=== PATIENT | male | born 1985 | race Caucasian/White ===

== ENCOUNTER 2018-09-15 14:57 | Outpatient (CLI) | payer MEDICAID, SELFPAY ==
[2018-09-15 15:56] LABS: HCT 44.8 % (40.0-50.0); HGB 15.2 g/dL (13.5-17.5); Mean Corp. HGB Concentration 33.9 g/dL (32.0-36.0); Mean Corpuscular Volume 88.4 fL (80-95); Mean Platelet Volume 10.2 fL (8.0-11.0); Platelet Count 248 x1000/uL (130-400); RBC 5.07 m/cumm (4.50-6.00); RBC Distribution Width 13.4 % (11.8-14.1); White Blood Cell Count 7.13 k/cumm (4.4-10.8)
[2018-09-15 17:01] LABS: ESR 9 MM/HR (0-15)
[2018-09-21 14:56] LABS: HLA-B27 Result Positive
== END 2018-09-15 15:17 ==
PROVIDERS: Visit Provider Optometrist
DX: H20.013 Primary iridocyclitis, bilateral (principal)
CPT/HCPCS: 36415; 85027; 85652; 86812; 86140